=== PATIENT | male | born 1985 | race African-American/Black ===

== ENCOUNTER 2019-11-29 15:25 | Emergency (ER) | payer MEDICAID ==
[~2019-11-29] VITALS: Ht 190.5 cm; Wt 136.5 kg
[2019-11-29] MEDS ORDERED: IBUPROFEN 600MG TABLET PO ONE (16:30)
[2019-11-29 17:41] VITALS: BP 146/92
== END 2019-11-29 17:43 | disposition home or self-care (01) ==
LOC: ER 15:25
DX: M25.521 Pain in right elbow (principal); J45.909 Unspecified asthma, uncomplicated; V29.88XA Motorcycle rider (driver) (passenger) injured in other specified transport accidents, initial encounter; Y93.89 Activity, other specified; Y92.488 Other paved roadways as the place of occurrence of the external cause
CPT/HCPCS: 73080; 99283